=== PATIENT | male | born 1965 | race Caucasian/White ===

== ENCOUNTER 2017-09-05 07:37 | Day surgery (SDC) | payer MEDICAID ==
[~2017-09-05 07:37] MED LIST: ASPIRIN 325MG325 MG PO; ASPIRIN 81MG TA81 MG PO; ATORVASTATIN CA40 MG PO; CARVEDILOL 25MG25 MG PO; EFFIENT10 M2 PO; LOSARTAN POTASS1 TA3 PO; NOMEDS *; ZOFRAN ODT4 MG PO
[2017-09-05 08:13] LABS: HEMOGLOBIN 15.4 g/dL (14.1-18.0); LYMPH # 2.1 K/mm3 (0.7-4.5); LYMPH % 28.7 % (10-50)
[2017-09-05 08:26] LABS: BUN 17 mg/dL (7-18)
[2017-09-05 08:27] LABS: GFR (ESTIMATED) 70 ML/MIN (>60)
--- NOTE | 2017-09-05 10:27 | RADIOLOGY REPORT PS360 ---
CARDIAC CATHETERIZATION DATE OF CATHETERIZATION:09/05/2017 9:40 AM PROCEDURES: 1. Left heart catheterization 2. Left ventriculogram 3. Selective coronary angiogram INDICATION FOR TEST: 1. Known coronary artery disease 2. Recurrent recalcitrant angina Informed consent was obtained prior to the procedure. COMPLICATIONS: None ESTIMATED BLOOD LOSS: Less than 10 ml. TECHNIQUE: One percent lidocaine used to anesthetize the right anterior aspect of the wrist. The right radial artery was accessed via the Seldinger technique. A 6 [place] sheath was placed in the right radial artery. 2.5 mg of verapamil, 800 mcg of nitroglycerin and 5000 U Heparin were given through the arterial sheath. The trap catheter was also used to perform left heart catheterization and left ventriculography. At the end of the procedure the patient was transferred to the post-op holding area in stable condition for arterial sheath removal. ANGIOGRAPHIC RESULTS: 1. The left main artery normal 2. The left anterior descending artery has very proximal mild 10% stenosis mid vessel 20 and 30% stenoses. The large first diagonal artery is a 3 mm vessel and has an ostial proximal 40% nonflow limiting stenosis 3. The circumflex artery nondominant and has 20% mid vessel stenoses 4. The right coronary artery is a dominant vessel and has mid vessel 20% and distal 20% stenoses. 5. The BANKS ventriculogram reveals normal 65% 6. The left ventricular end-diastolic pressure is elevated at 25 mmHg IMPRESSION: 1. Mostly mild nonflow limiting coronary artery disease with mild to moderate disease in a very large first diagonal artery which is also nonflow limiting 2. Normal ejection fraction 3. Moderately elevated LVEDP PLAN: 1. Medical management 2. Patient's angina likely stems from his elevated LVEDP and likely endothelial dysfunction. We should treat accordingly with low-dose diuretics and dihydropyridine calcium channel blockers possibly combined with long-acting nitrates possibly combined with Ranexa 3. Risk factor modification 4. Avoidance of tobacco products 5. LDL less than 55
[2017-09-05 13:32] VITALS: BP 139/93
== END 2017-09-05 13:33 | disposition home or self-care (01) ==
LOC: CATHLAB 07:37
PROVIDERS: Internal Medicine
PROC: B2111ZZ Fluoroscopy of Multiple Coronary Arteries using Low Osmolar Contrast (ICD-10-PCS; 2017-09-05)
PROC: B2151ZZ Fluoroscopy of Left Heart using Low Osmolar Contrast (ICD-10-PCS; 2017-09-05)
PROC: 4A023N7 Measurement of Cardiac Sampling and Pressure, Left Heart, Percutaneous Approach (ICD-10-PCS; principal; 2017-09-05 08:30)
DX: I25.118 Atherosclerotic heart disease of native coronary artery with other forms of angina pectoris (principal); I10 Essential (primary) hypertension; Z95.5 Presence of coronary angioplasty implant and graft; G47.33 Obstructive sleep apnea (adult) (pediatric); R06.09 Other forms of dyspnea
CPT/HCPCS: C1725; C1760; C1769; J1644; Q9967